=== PATIENT | female | born 1990 | race African-American/Black ===

== ENCOUNTER 2021-02-02 10:06 | Emergency (ER) | payer BC, SELFPAY ==
[2021-02-02] MEDS ORDERED: Ketorolac Tromethamine 30 MG/ML VIAL ONE (11:29)
[2021-02-03 05:52] LABS: SARS-CoV-2 PCR by NAA Not Detected (NotDetected)
== END 2021-02-02 12:55 | disposition home or self-care (01) ==
LOC: CSHERS 10:06
DX: B34.9 Viral infection, unspecified (principal); Z20.822 Contact with and (suspected) exposure to COVID-19
CPT/HCPCS: 87635; 99283; J1885; U0003; U0005